=== PATIENT | male | born 1960 | race Caucasian/White ===

== ENCOUNTER 2019-02-26 10:06 | Emergency (ER) | payer MEDICAID ==
[~2019-02-26] VITALS: Ht 172.7 cm; Wt 129.0 kg
[2019-02-26] MEDS ORDERED: aspirin 81mg tab.chew PO ONE (10:35)
[2019-02-26 10:59] LABS: BASOPHILS # (AUTO) 0.1 X10'3 (0-0.2); BASOPHILS % (AUTO) 0.6 % (0-1); EOSINOPHILS # (AUTO) 0.2 X10'3 (0-0.9); EOSINOPHILS % (AUTO) 1.4 % (0-6); HEMATOCRIT 44.3 % (42.0-52.0); HEMOGLOBIN 14.2 g/dl (14.0-17.9); LYMPHOCYTES # (AUTO) 2.3 X10'3 (1.1-4.8); LYMPHOCYTES % (AUTO) 14.3 % (21-51); MEAN CORPUSCULAR HEMOGLOBIN 25.7 PG (27.0-31.0); MEAN CORPUSCULAR HGB CONC 32.1 g/dL (33.0-36.5); MEAN CORPUSCULAR VOLUME 80.2 FL (78-98); MEAN PLATELET VOLUME 8.1 FL (7.4-10.4); MONOCYTES % (AUTO) 6.5 % (2-12); NEUTROPHILS # (AUTO) 12.2 X10'3 (1.8-7.7); NEUTROPHILS % (AUTO) 77.2 % (42-75); PLATELET COUNT 279 X10'3 (140-440); RED BLOOD COUNT 5.52 X10'6 (4.70-6.10); RED CELL DISTRIBUTION WIDTH 15.6 % (11.5-14.5)
[2019-02-26 11:02] LABS: WHITE BLOOD COUNT 15.8 X10'3 (4.5-11.0)
[2019-02-26 11:23] LABS: ALANINE AMINOTRANSFERASE 22 U/L (12-78); ALBUMIN/GLOBULIN RATIO 0.7 (1.1-1.5); ALKALINE PHOSPHATASE 113 IU/L (46-116); ANION GAP 9 (8-16); ASPARTATE AMINO TRANSFERASE 11 U/L (10-37); BILIRUBIN,TOTAL 0.3 MG/DL (0.1-1.0); BLOOD UREA NITROGEN 18 MG/DL (7-18); BUN/CREATININE RATIO 15.3 (5.4-32.0); CALCIUM 8.3 MG/DL (8.5-10.1); CHLORIDE 101 MMOL/L (99-107); CREATININE 1.18 MG/DL (0.60-1.10); GLUCOSE 297 MG/DL (70-104); POTASSIUM 4.1 MMOL/L (3.5-5.1); SODIUM 135 MMOL/L (135-145); TOTAL CARBON DIOXIDE 24.6 MMOL/L (24-32); TOTAL PROTEIN 7.3 G/DL (6.4-8.2); eGFR 64 ML/MIN
[2019-02-26] MEDS ORDERED: ondansetron 4mg rapidly disintigrating tab PO ONE (11:25)
[2019-02-26] MEDS ORDERED: morphine 4 MG/ML inj SYRINge IM ONE (11:25)
[2019-02-26 11:26] LABS: TOTAL CELLS COUNTED 100
[2019-02-26 11:27] LABS: PLATELET ESTIMATE NORMAL
[2019-02-26 11:40] VITALS: BP 149/95
== END 2019-02-26 12:26 | disposition home or self-care (01) ==
LOC: ER 10:07 → EDBD 10:07 → ER 12:26
DX: R07.89 Other chest pain (principal); E11.65 Type 2 diabetes mellitus with hyperglycemia; I25.10 Atherosclerotic heart disease of native coronary artery without angina pectoris; Z95.5 Presence of coronary angioplasty implant and graft; Z88.6 Allergy status to analgesic agent
CPT/HCPCS: 36415; 71045; 80053; 83880; 84484; 85025; 93005; 96372; 99284; J2270